=== PATIENT | female | born 1965 | race Caucasian/White ===

== ENCOUNTER 2016-06-09 17:32 | Emergency (ER) | payer MEDICAID ==
[~2016-06-09] VITALS: Ht 152.4 cm; Wt 74.8 kg
[2016-06-09 21:38] VITALS: BP 135/93
== END 2016-06-09 21:38 | disposition home or self-care (01) ==
LOC: ED 17:32
DX: M54.32 Sciatica, left side (principal); I10 Essential (primary) hypertension
CPT/HCPCS: J1885; J3010; Q0162